=== PATIENT | male | born 1980 | race Caucasian/White ===

== ENCOUNTER 2022-06-27 20:47 | Emergency (ER) | payer OTHER, SELFPAY ==
--- NOTE | 2022-06-27 20:49 | ED.UPPEXIN ---
HPI - Extremity Injury (Upper) General Chief Complaint: Wound/Laceration Stated Complaint: injury to right hand, pinky Time Seen by Provider: 06/27/22 20:48 Source: patient and RN notes reviewed Mode of arrival: ambulatory Limitations: no limitations History of Present Illness HPI narrative: Patient states he was cleaning a glass electric stove top and when he pressed hard to get a clean the glass cracked and sliced his finger. complaint: injury to: right and finger Onset (ago): minute(s) (10) Other Extremity Injury: Right: fingers (5th) Other injuries: none Handedness: right Place: home Severity: mild Relieving factors: none Exacerbating factors: movement of extremity Context: laceration Associated symptoms: denies other symptoms Treatments prior to arrival: bandage Related Data Home Medications Medication Instructions Recorded Confirmed metformin 500 mg tablet 500 mg PO DAILY 06/27/22 06/27/22 Allergies Allergy/AdvReac Type Severity Reaction Status Date / Time No Known Allergies Allergy Verified 06/27/22 21:05 [facility] Past Medical History Medical History (Updated 06/27/22 @ 22:16 by Zak Morocho MD) Diabetes mellitus type 2 in obese Obesity Surgical History Surgical History (Updated 06/27/22 @ 22:10 by Zak Morocho MD) H/O umbilical hernia repair History of appendectomy Social History Social History (Updated 06/27/22 @ 22:11 by Zak Morocho MD) Smoking status: Current every day smoker Alcohol intake: current Alcohol use details: sometimes Substance use: never Exam Const: General: healthy appearing, no acute distress and alert Nutritional Appearance: well nourished and obese Orientation/consciousness: patient oriented x3 Limitations: no limitations HENMT: Head: normal to inspection Ears: external ears normal Face/Nose/Sinus: Normal external nose present Face and sinus: normal facial exam Mouth: Yes moist mucous membranes Eyes: Conjunctivae: conjunctivae normal Pupils: Equal, round and reactive pupils present EOM: EOMs intact bilaterally Neck: Neck: normal visual inspection Resp: Effort & Inspection: normal respiratory effort Auscultation: clear to auscultation bilaterally Cardio: Rate: regular rate Rhythm: regular rhythm GI: GI Palp: Yes Soft to palpation and No Tenderness to palpation present (GI) Auscultation: normal bowel sounds Back/Spine/Pelvis: Cervical Spine: cervical ROM normal Thoracic/Lumbar Spine: thoraco-lumbar ROM normal Skin: General skin exam: normal color Rashes: no rashes Wounds: wounds noted flap right dorsal 5th finger size (4 cm), drainage bloody, margins well approximated and well defined and open Neuro: General: patient oriented x3, moves all extremities, no focal motor deficits and CN's II-XI intact bilaterally Speech: normal speech Gait exam (Neuro): Normal gait present Extrem: General: normal to inspection and no clubbing, cyanosis or edema Psych: Mental Status: mental status grossly normal Affect: normal affect Attitude: cooperative Course Vital Signs Vital signs: Vital Signs Temperature 36.4 C L 06/27/22 20:53 Pulse Rate 98 06/27/22 20:53 Respiratory Rate 16 06/27/22 20:53 Blood Pressure 154/88 H 06/27/22 20:53 Pulse Oximetry 97 06/27/22 20:53 Oxygen Delivery Room Air 06/27/22 20:53 Temperature 37.1 C 06/27/22 21:56 Pulse Rate 84 06/27/22 21:56 Respiratory Rate 20 06/27/22 21:56 Blood Pressure 157/84 H 06/27/22 21:56 Pulse Oximetry 98 06/27/22 21:56 Oxygen Delivery Room Air 06/27/22 21:56 Procedures Laceration Laceration 1: Date: 06/27/22 Site: upper extremity Side (If applicable): right (5th finger over the PCP) Size (cm): 4 Description: flap Depth: involves muscle layer Local Anesthetic: lidocaine 1% Amount of anesthesia used (mL): 9 (digital nerve block) Pre-repair: wound explored and irrigated =====
[2022-06-27 20:53] VITALS: BP 154/88; PULSE 98; RESP 16; TEMP 36.4; O2SAT 97
[2022-06-27] MEDS: LIDOCAINE HCL 1% LOCAL INJ 10 ML VIAL INFILTRATE (21:06)
[2022-06-27] MEDS: NEOMYCIN/POLYMYXIN/BACITRACIN OINTMENT PACKET 1 PACKET TOPICAL (21:06)
[2022-06-27 21:56] VITALS: BP 157/84; PULSE 84; RESP 20; TEMP 37.1; O2SAT 98
== END 2022-06-27 22:20 | disposition home or self-care (01) ==
PROVIDERS: Emergency Provider Emergency Medicine
DX: S61.216A Laceration without foreign body of right little finger without damage to nail, initial encounter (principal); E11.9 Type 2 diabetes mellitus without complications; F17.200 Nicotine dependence, unspecified, uncomplicated; W25.XXXA Contact with sharp glass, initial encounter
CPT/HCPCS: 12042; 99283